=== PATIENT | male | born 1945 | race Caucasian/White ===

== ENCOUNTER 2024-07-30 10:04 | Day surgery (SDC) | payer MEDICARE, BC ==
[~2024-07-30] VITALS: Ht 175.3 cm; Wt 74.5 kg
[~2024-07-30 10:04] MED LIST: Balanced Salt Epinephrine Irrigation Solution 500 mL IR SCH; Lidocaine HCl/Pf 1% 5 ML VIAL XX SCH; Moxifloxacin HCL 0.5 MG/0.1 ML 0.4MLSYR RIGHTEYE SCH; PHENYLEPHRINE\\TROPICAMIDE\\TETRACAINE OPHTHALMIC DILATING SOLN RIGHTEYE PRN; Povidone-Iodine 450 DROP/30 ML Solution ONE; Povidone-Iodine 450 DROP/30 ML Solution RIGHTEYE SCH; Tetracaine HCl/Pf 0.5% Opth Soln 4 ml ONE
[2024-07-30] MEDS ORDERED: Diazepam 5 MG Tab ONE (10:15)
[2024-07-30] MEDS ORDERED: Diazepam 2 MG Tab ONE (10:15)
--- NOTE | 2024-07-30 10:36 | NUR ---
07/30/24 1036 Nash Sosa CALL LIGHT WITHIN REACH. TETRACAINE IN RIGHT EYE AT 1032 AND PLEDGETT IN AT 1033. PT ON CONTINOUS PULSE OXIMETER.
--- NOTE | 2024-07-30 11:43 | NUR ---
07/30/24 1143 Leann Beltre PHONE AND HEARING RETURNED TO PATIENT. HEARING AID PLACED IN LEFT EAR
== END 2024-07-30 12:04 | disposition home or self-care (01) ==
LOC: ORSCSDS 10:04
PROVIDERS: Student in an Organized Health Care Education/Training Program
PROC: 08RJ3JZ Replacement of Right Lens with Synthetic Substitute, Percutaneous Approach (ICD-10-PCS; principal; 2024-07-30 11:30)
DX: H25.813 Combined forms of age-related cataract, bilateral (principal); H52.201 Unspecified astigmatism, right eye
CPT/HCPCS: A9270; V2632

== ENCOUNTER 2024-08-06 10:03 | Day surgery (SDC) | payer MEDICARE, BC ==
[~2024-08-06] VITALS: Ht 175.3 cm; Wt 73.8 kg
[~2024-08-06 10:03] MED LIST changes: +Diazepam 2 MG Tab PO PRN; +Moxifloxacin HCL 0.5 MG/0.1 ML 0.4MLSYR LEFTEYE SCH; -Moxifloxacin HCL 0.5 MG/0.1 ML 0.4MLSYR RIGHTEYE SCH; +Ondansetron 4 MG SoluTab MM PRN; +PHENYLEPHRINE\\TROPICAMIDE\\TETRACAINE OPHTHALMIC DILATING SOLN LEFTEYE PRN; -PHENYLEPHRINE\\TROPICAMIDE\\TETRACAINE OPHTHALMIC DILATING SOLN RIGHTEYE PRN; +Povidone-Iodine 450 DROP/30 ML Solution LEFTEYE SCH; -Povidone-Iodine 450 DROP/30 ML Solution RIGHTEYE SCH; +diazePAM 5 MG,diazePAM 2 MG PO SCH
[2024-08-06] MEDS ORDERED: Diazepam 10 MG Tab ONE (10:13)
--- NOTE | 2024-08-06 11:05 | NUR ---
08/06/24 Yin Ambrocio SPOKE TO LINDA BRIAN REGARDING PT HEART RATE IN PREOP. PT HEART RATE ON THE MONITOR WENT FROM 86 TO IN THE 50'S. THIS RN MANUALLY COUNTED THE RADIAL PULSE AND IT WAS 69. SNEHAL MCKEON IS AWARE. NO FURTHER ORDERS.
--- NOTE | 2024-08-06 11:43 | NUR ---
08/06/24 1143 Jenniffer Chicas D/Tr INSTRUCTIONS GIVEN TO PT, UNDERSTANDING VERBALIZED. PT HAS ALL BELONGINGS W/ HIM. PT PLACED HEARING AID IN L EAR AFTER GETTING UP TO RECLINER. PT TOLERATING SIPS OF COFFEE W/O COMPLAINT. VSS, ON RA. PT DENIES PAIN/NAUSEA. PT WHEELED TO PRIVATE VEHICLE. STEADY GAIT NOTED UPON TRANSFER FROM TO VEHICLE. NO VISIBLE SIGNS OF DISTREES NOTED.
== END 2024-08-06 11:43 | disposition home or self-care (01) ==
LOC: ORSCSDS 10:03
PROVIDERS: Student in an Organized Health Care Education/Training Program
PROC: 08RK3JZ Replacement of Left Lens with Synthetic Substitute, Percutaneous Approach (ICD-10-PCS; principal; 2024-08-06 11:30)
DX: H25.812 Combined forms of age-related cataract, left eye (principal); Z96.1 Presence of intraocular lens; Z87.891 Personal history of nicotine dependence; Z79.899 Other long term (current) drug therapy
CPT/HCPCS: A9270; V2632